=== PATIENT | male | born 1990 | race Caucasian/White ===

== ENCOUNTER → 2017-04-10 | Outpatient (CLI) | payer OTHER ==
--- NOTE | 2017-04-10 11:46 | RADRPT ---
EXAM DATE/TIME: 04/10/2017 10:52 [place] COMPARISON: No previous studies available for comparison. INDICATIONS : Cephalgia. Intractable vomitting. MEDICAL HISTORY : None. SURGICAL HISTORY : Cholecystectomy. lt hip, kidney removed, cord tether correction, hernia ENCOUNTER: Subsequent ACUITY: 1 month PAIN SCORE: 3/10 LOCATION: cranial TECHNIQUE: Multiplanar, multisequence MRI of the brain was performed without contrast. FINDINGS: CEREBRUM: The ventricles are normal for age. No evidence of midline shift, mass lesion, hemorrhage or acute in farction. No extraaxial fluid collections are seen. The pituitary gland and suprasellar cistern are normal in configuration. WHITE MATTER: Several punctate areas of focal white matter T2 prolongation which are nonspecific involving the bifr ontal subcortical regions. POSTERIOR FOSSA: The cerebellum and brainstem are intact. The 4th ventricle is midline. The cerebellopontine angle is unremarkable. The cerebellar tonsils are normal in position. DIFFUSION IMAGING: No focal areas of restricted diffusion are seen. No evidence of acute infarction. EXTRACRANIAL: Mucosal thickening involving frontal ethmoid and sphenoid sinuses. Maxillary antra are relatively spa red. CONCLUSION: Minimal nonspecific white matter signal change. Given the patient's young age, followup may be approp riate. Sinus disease. Eduar Villafana MD on April 10, 2017 at 11:42 Board Certified Radiologist. This report was verified electronically.
== END ==
LOC: HRAD 10:03
DX: R51 Headache (principal)
CPT/HCPCS: 70551